=== PATIENT | female | born 1965 | race Caucasian/White ===

== ENCOUNTER 2023-06-04 14:38 | Emergency (ER) | payer MEDICAID ==
[~2023-06-04] VITALS: Ht 185.4 cm; Wt 177.5 kg
[2023-06-04 18:07] LABS: APPEARANCE,URINE TURBID (CLEAR); BILIRUBIN,URINE NEGATIVE (NEGATIVE); GLUCOSE, URINE (UA) NEGATIVE (NEGATIVE); KETONES,URINE NEGATIVE (NEGATIVE); LEUKOCYTE ESTERASE ,URINE LARGE (NEGATIVE); OCCULT BLOOD,URINE LARGE (NEGATIVE); PH,URINE 5.5 (5.0-8.0); PROTEIN,URINE TRACE mg/dL (NEGATIVE); UROBILINOGEN,URINE <=1.0 mg/dL (<=1.0)
[2023-06-04 18:17] LABS: BACTERIA,URINE Many /HPF (None Seen); NITRATE,URINE POSITIVE (NEGATIVE); SQUAMOUS EPITHELIAL CELL,UR Few /LPF (None Seen); WBC,URINE 51-100 /HPF (0-5)
[2023-06-04] MEDS ORDERED: CEPHALEXIN MONOHYDRATE 500 MG CAPSULE PO ONE (18:30)
[2023-06-04] MEDS ORDERED: KETOROLAC TROMETHAMINE 30 MG/ML VIAL IM ONE (18:30)
[2023-06-04] MEDS ORDERED: CIPROFLOXACIN HCL 250 MG TABLET PO ONE (18:45)
[2023-06-04] MEDS ORDERED: CIPR500T10 PO (19:10)
[2023-06-04] MEDS ORDERED: FLUC150T61 PO (19:11)
[2023-06-04 19:51] VITALS: BP 135/85; PULSE 89; RESP 16; TEMP 97.3
== END 2023-06-04 19:51 | disposition home or self-care (01) ==
LOC: EMS 14:47
DX: N39.0 Urinary tract infection, site not specified (principal); F41.9 Anxiety disorder, unspecified; F32.A Depression, unspecified; F17.210 Nicotine dependence, cigarettes, uncomplicated; Z90.49 Acquired absence of other specified parts of digestive tract; Z90.89 Acquired absence of other organs; Z88.0 Allergy status to penicillin; Z88.2 Allergy status to sulfonamides; Z88.5 Allergy status to narcotic agent
CPT/HCPCS: 99283; 81001; 87086; 87186; 96372; J1885